=== PATIENT | female | born 1945 | race Caucasian/White ===

== ENCOUNTER 2022-12-08 10:19 | Day surgery (SDC) | payer OTHER ==
[2022-12-08] VITALS (7 sets, daily range): BP systolic 89–121; BP diastolic 53–74; PULSE 51–62; RESP 12–18; O2SAT 94–98
[~2022-12-08] VITALS: Ht 160 cm; Wt 67.6 kg
[~2022-12-08 10:19] MED LIST: ALEN70TA74 PO; ALPR0.254 PO; ASPI-543 PO; ATOR20TA50 PO; CAR125T PO; FURO1TAB33 PO; LOSA50TA46 PO; POTA-220 PO
[2022-12-08] MEDS ORDERED: HEPARIN SODIUM (PORCINE) 5000 UNITS/ML 1ML VIAL ONE (12:33)
[2022-12-08] MEDS ORDERED: VERAPAMIL 2.5MG/ML INJ 2ML VIAL IV ONE (12:33)
[2022-12-08] MEDS ORDERED: LIDOCAINE 2%HCL (LOCAL ANESTH.) INJ 20ML MDV ONE (12:34)
[2022-12-08] MEDS ORDERED: IODIXANOL 320MG/ML 100ML BTL IV ONE (12:34)
[2022-12-08] MEDS ORDERED: fentaNYL CITRATE 100 MCG/2 ML VL ONE (12:34)
[2022-12-08] MEDS ORDERED: MIDAZOLAM HCL 2MG/2ML 2ml VIAL (1mg/ml) ONE (12:34)
[2022-12-08] MEDS ORDERED: ANGIOMAX 250 MG VIAL IV ONE (12:35)
[2022-12-08] MEDS ORDERED: SODIUM CHL 0.9% 0 ML ONE (12:35)
== END 2022-12-08 15:20 | disposition home or self-care (01) ==
LOC: CATH 10:19
PROVIDERS: ATTEND Internal Medicine
DX: I21.21 ST elevation (STEMI) myocardial infarction involving left circumflex coronary artery (principal); I25.10 Atherosclerotic heart disease of native coronary artery without angina pectoris; I50.9 Heart failure, unspecified; I42.9 Cardiomyopathy, unspecified
CPT/HCPCS: 93458; C1894; J1644; J2250; J3010; J7030; Q9967; 99152; 99153